=== PATIENT | female | born 1970 | race African-American/Black ===

== ENCOUNTER 2025-09-06 11:58 | Emergency (ER) | payer OTHER, SELFPAY ==
--- NOTE | ~2025-09-06 | XR_ITS ---
EXAMINATION: XR chest 2V 09/06/2025 13:07 INDICATION: Chest palpitations PROCEDURE: 2 view chest COMPARISON: No prior studies for comparison. FINDINGS: The lungs are clear. The cardiomediastinal silhouette is within normal limits. There are no pleural effusions. There is no pneumothorax suspected. IMPRESSION: 1: NO ACUTE CARDIOPULMONARY DISEASE. Reviewed, dictated and finalized at location I. 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
[2025-09-06 12:06] VITALS: BP 132/79; PULSE 88; RESP 16; TEMP 36.3; O2SAT 100
--- NOTE | 2025-09-06 12:07 | ECG_ITS ---
Test Date: 2025-09-06 12:11:50 Measurements Intervals [place] Rate: 78 P: 62 MN: 155 QRS: 55 QRSD: 77 T: 15 QT: 345 QTc: 394 Interpretive Statements SINUS RHYTHM WITH SINUS ARRHYTHMIA POSSIBLE LEFT ATRIAL ENLARGEMENT LOW QRS VOLTAGE IN PRECORDIAL LEADS CONSIDER ANTERIOR INFARCT, AGE INDETERMINATE BORDERLINE ST-T WAVE ABNORMALITY- INFERIOR LEADS ABNORMAL ECG No previous ECG available for comparison Electronically Signed On 09-06-2025 13:03:27 [employer] by Vishnu Greene D.O.
[2025-09-06 13:21] LABS: Hematocrit 42.6 % (37.0-47.0); Hemoglobin 13.5 g/dL (12.0-15.0); Immature Granulocyte Percent A 0.2 % (0-0.5); Lymphocytes Absolute Auto 2.68 K/mm3 (0.9-3.2); Mean Corpuscular HGB Conc 31.7 g/dl (32-36); Mean Corpuscular Hemoglobin 27.8 pg (26-34); Mean Corpuscular Volume 87.8 fl (80-100); Nucleated Red Blood Cells Absolute Auto 0.000 K/mm3 (0.0-0.012); Nucleated Red Blood Cells Perc 0.0 % (0.0-0.2); Platelet Count Result 296 k/mm3 (150-375); Red Blood Count 4.85 M/mm3 (4.2-5.4); White Blood Count 5.9 K/mm3 (4.5-10.0)
[2025-09-06] MEDS: SODIUM CHLORIDE 0.9% IV 1,000 ML 999 ML IV CONT (13:26)
[2025-09-06 13:33] LABS: Alanine Aminotransferase 23 U/L (6-35); Albumin Level 4.4 g/dL (3.5-5.1); Alkaline Phosphatase 70 U/L (38-126); Anion Gap 5 mmol/L (4-12); Aspartate Amino Transferase 30 U/L (14-36); Bilirubin,Total 0.6 mg/dL (0.2-1.3); Blood Urea Nitrogen 9 mg/dL (7-17); Calcium 10.3 mg/dL (8.4-10.2); Carbon Dioxide 28 mmol/L (22-30); Chloride 107 mmol/L (98-107); Estimated Glomerular Filt Rate 58; Glucose 92 mg/dL (65-110); Magnesium 2.1 mg/dL (1.6-2.3); Potassium 4.7 mmol/L (3.4-5.0); Sodium 140 mmol/L (137-145); Total Protein 8.6 g/dL (6.3-8.2)
[2025-09-06 13:41] VITALS: BP 132/89; PULSE 60; RESP 18; O2SAT 100
--- NOTE | 2025-09-06 13:57 | ED_ITS ---
HPI - General Adult General Chief complaint: Dizziness Stated complaint: heart palp, dizziness, headache, SOB 8am Time Seen by Provider: 09/06/25 12:32 History of Present Illness HPI narrative: Patient is a 55-year-old female who presents ER with multiple issues. Main issue today while at work she became very lightheaded and having mild headache. She then felt like her heart was racing and like she might pass out. 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 After eating some [employer] bar she felt a lot better. She did not eat this morning and had last eaten yesterday evening. No chest pain. No spinning dizziness. Related Data Allergies Allergy/AdvReac Type Severity Reaction Status Date / Time No Known Allergies Allergy Verified 09/06/25 12:00 Review of Systems 2 Review of Systems: All systems reviewed & are unremarkable except as noted in HPI and below Constitutional: Constitutional: Reports no additional constitutional complaints ENT: Reports system reviewed and no additional complaints, except as documented Cardiovascular: Cardiovascular: Reports no additional cardiovascular complaints Respiratory: Respiratory: Reports no additional respiratory complaints Musculoskeletal: Musculoskeletal: Reports no additional musculoskeletal complaints PMFSH Past Medical History Medical History (Updated 09/06/25 @ 15:14 by Augustine Smith MD) Healthy female adult Surgical History Surgical History (Updated 09/06/25 @ 13:59 by Augustine Smith MD) No pertinent past surgical history Exam 2 Narrative: GENERAL: Well-appearing, well-nourished, and in no acute distress. HEAD: Normocephalic, atraumatic. EYES: PERRL and EOMI. ENT: Mucous membranes moist. Neck: Anterior cervical chain lymphadenopathy bilaterally most prominent at the angled manual. Nontender. CHEST: Clear to auscultation. No respiratory distress. HEART: Regular rate and rhythm. Normal peripheral pulses. ABDOMEN: Soft, nontender, nondistended. EXTREMITIES: Normal range of motion. No edema. SKIN: Warm, dry, no rash. NEURO: Alert and oriented x3. PSYCH: Normal mood and affect. Course Course Emergency Course: Discussed enlarged lymph nodes in the neck, patient is unsure how long the been like that but it has been a short while. Recommend follow-up with PCP for further evaluation if they are not starting to decrease in size. She has been resting comfortably and no longer has any dizziness. Suspect some hypoglycemia earlier in the day. Appropriate for discharge home. Vital Signs Vital signs: Vital Signs Temperature 97.4 F L 09/06/25 12:06 Pulse Rate 88 09/06/25 12:06 Respiratory Rate 16 09/06/25 12:06 Blood Pressure 132/79 09/06/25 12:06 Pulse Oximetry 100 09/06/25 12:06 Temperature 97.4 F L 09/06/25 12:06 Pulse Rate 60 09/06/25 13:41 Respiratory Rate 18 09/06/25 13:41 Blood Pressure 132/89 09/06/25 13:41 Pulse Oximetry 100 09/06/25 13:41 MDM Differential Diagnosis Differential Diagnosis: Arrhythmia, hypoglycemia, dehydration, ACS, pulmonary embolism. Lab Data [facility] Lab Attestation statement: I personally reviewed the patient's lab results. 09/06/25 13:10 09/06/25 13:10 Labs: Lab Results 09/06/25 Range/Units 13:10 WBC 5.9 (4.5-10.0) K/mm3 RBC 4.85 (4.2-5.4) M/mm3 Hgb 13.5 (12.0-15.0) g/dL Hct 42.6 (37.0-47.0) % MCV 87.8 (80-100) fl MCH 27.8 (26-34) pg MCHC 31.7 L (32-36) g/dl RDW 14.0 (11.5-14.5) % Plt Count 296 (150-375) k/mm3 MPV 8.8 (7.4-10.4) fl Immature Gran % (Auto) 0.2 (0-0.5) % Neut % (Auto) 43.9 L (45.5-73.1) % Lymph % (Auto) 45.5 H (18.3-44.2) % [place] % (Auto) 7.8 (2.6-8.5) % Eos % (Auto) 1.9 (0-4.4) % Baso % (Auto) 0.7 (0.2-1.2) % Lymph # (Auto) 2.68 (0.9-3.2) K/mm3 [place] # (Auto) 0.5 (0.1-0.6) K/mm3 Eos # (Auto) 0.1 (0-0.3) K/mm3 Baso # (Auto) 0.0 (0.0-0.1) K/mm3 Abs Immat Gran (auto) 0.01 (0.00-0.031) K/mm3 Absolute Neuts (auto) 2.6 (1.3-6.7) K/mm3 Absolute Nucleated RBC 0.000 (0.0-0.012) K/mm3 Nucleated RBC % 0.0 (0.0-0.2) % Sodium 140 (137-145) mmol/L Potassium 4.7 (3.4-5.0) mmol/L Chloride 107 (98-107) mmol/L Carbon Dioxide 28 (22-30) mmol/L Anion Gap 5 (4-12) mmol/L BUN 9 (7-17) mg/dL Creatinine 0.99 (0.7-1.0) mg/dL Estim Creat Clear Calc Not Reportable Estimated GFR 58 L (59 - ) Glucose 92 (65-110) mg/dL Calcium 10.3 H (8.4-10.2) mg/dL Magnesium 2.1 (1.6-2.3) mg/dL Total Bilirubin 0.6 (0.2-1.3) mg/dL AST 30 (14-36) U/L ALT 23 (6-35) U/L Alkaline Phosphatase 70 (38-126) U/L Total Protein 8.6 H (6.3-8.2) g/dL Albumin 4.4 (3.5-5.1) g/dL Influenza A (RT-PCR) Negative (Negative) Influenza B (RT-PCR) Negative (Negative) RSV (RT-PCR) Negative (Negative) SARS-CoV-2 RNA (RT-PCR) Negative (Negative) Imaging Data Radiologist's impression: ITS Impressions Chest X-Ray 09/06/25 13:16 IMPRESSION: 1: NO ACUTE CARDIOPULMONARY DISEASE. ECG Data EKG #1: ECG completion date: 09/06/25 ECG completion time: 12:11 normal rate (78), sinus rhythm, non-specific ST changes, normal QRS and normal QT Discharge Plan Discharge Clinical Impression: Heart palpitations, Lightheadedness, Lymphadenopathy Patient Disposition: Home Condition: Stable Instructions: Lymphadenopathy (ED), Lightheadedness (ED) Additional Instructions: You are evaluated for your lightheadedness. It is likely due to the fact that he did not eat or drink this morning. Make sure to eat properly in the morning before work. Additionally it was found your lymph nodes in her neck for slightly enlarged. Follow-up with your primary care doctor in the next week if they are not decreasing in size. Otherwise they may need to be biopsied. Patient Language: Tamazight Follow-up/Referrals: Denis,CHEYENNE Cesar [Primary Care Provider, Unknown] - 1 Week
[2025-09-06 14:03] LABS: Influenza A QL RT-PCR Negative (Negative); Influenza B QL RT-PCR Negative (Negative); RSV RNA, RT-PCR Negative (Negative); SARS-CoV-2 RNA PCR Negative (Negative)
[2025-09-06 15:35] VITALS: BP 144/86; PULSE 55; RESP 18; TEMP 36.6; O2SAT 100
== END 2025-09-06 15:36 | disposition home or self-care (01) ==
PROVIDERS: Emergency Provider Emergency Medicine; PCP Physician Assistant Medical
DX: R42 Dizziness and giddiness (principal); R00.2 Palpitations; R59.1 Generalized enlarged lymph nodes; Z20.822 Contact with and (suspected) exposure to COVID-19; R94.31 Abnormal electrocardiogram [ECG] [EKG]
CPT/HCPCS: 36415; 71046; 80053; 83735; 85025; 87637; 93005; 96360; 99283; J7030